=== PATIENT | male | born 2000 | race Caucasian/White ===

== ENCOUNTER 2020-02-22 16:47 | Emergency (ER) | payer SELFPAY ==
[~2020-02-22] VITALS: Ht 185.4 cm; Wt 100.0 kg
[~2020-02-22 16:47] MED LIST: AUGMENTIN400 MG/51 OR; DOXYCYCLINE MO100 M1 PO; NO MEDS
[2020-02-22 17:27] LABS: HEMATOCRIT 44.7 % (39.0-50.0); HEMOGLOBIN 14.7 g/dl (14.0-18.0); IMMATURE GRANULOCYTES 0.4 % (0.0-5.0); MEAN CELL VOLUME 81.1 fL CALC (80.0-100.0); MEAN CORPUSCULAR HGB 26.7 pG CALC (26.0-32.0); MEAN CORPUSCULAR HGB CONC 32.9 g/dL CAL (32.0-36.0); NEUT# 7.99 thou/uL (1.82-7.42); RED BLOOD COUNT 5.51 mill/uL (4.70-6.10)
[2020-02-22 17:38] LABS: ALBUMIN 4.5 g/dL (3.2-5.0); ALKALINE PHOSPHATASE 76 u/l (38-126); BILIRUBIN, TOTAL 0.7 mg/dL (0.0-1.4); BUN 12 mg/dL (8-21); BUN/CREATININE RATIO 13 (12-20 (CALC)); CHLORIDE 107 mmol/l (95-108); CREATININE 0.9 mg/dL (0.7-1.3); GFR > 60 ML/MIN (>=60 (CALC)); GFR FOR AFR.AMER. > 60 ML/MIN (>=60 (CALC)); POTASSIUM 3.6 mmol/l (3.5-5.1); SGOT/AST 25 u/l (17-59); SODIUM 140 mmol/l (137-146); TOTAL PROTEIN 7.4 g/dL (6.3-8.2)
[2020-02-22 17:47] LABS: ANION GAP 13 (6-22 (CALC)); CARBON DIOXIDE 24 mmol/l (22-30)
[2020-02-22] MEDS ORDERED: ZOFRAN4 MG/TAB PO (18:26)
[2020-02-22 18:50] VITALS: BP 141/76
== END 2020-02-22 18:50 | disposition home or self-care (01) | DRG 866 ==
LOC: ED 16:47
DX: B34.9 Viral infection, unspecified (principal); Z20.828 Contact with and (suspected) exposure to other viral communicable diseases

== ENCOUNTER 2021-05-11 21:25 | Emergency (ER) | payer SELFPAY ==
[~2021-05-11] VITALS: Ht 185.4 cm; Wt 100.0 kg
[~2021-05-11 21:25] MED LIST changes: +ZOFRAN4 MG/TAB PO
[2021-05-11] MEDS ORDERED: PREDNISONE50 MG PO (23:54)
[2021-05-11] MEDS ORDERED: VENTOLIN HFA IN (23:54)
[2021-05-12 00:08] VITALS: BP 134/70
== END 2021-05-12 00:10 | disposition home or self-care (01) | DRG 203 ==
LOC: ED 21:25
DX: J45.901 Unspecified asthma with (acute) exacerbation (principal)